=== PATIENT | male | born 1960 | race Caucasian/White ===

== ENCOUNTER → 2024-01-20 | Outpatient (CLI) | payer BC, SELFPAY ==
--- NOTE | 2024-01-20 11:03 | NEURO ---
NCS and/or EMG Patient Report Ordering Doctor: Mat Engle DATE OF SERVICE: 01/20/24 Gregg presents with numbness and tingling in both hand. He reports it is primarily in the first 4 digits of each hand. Electrodiagnostic findings: Right median motor nerve demonstrates prolonged distal latency with normal amplitude and reduced conduction velocity. Left median motor nerve demonstrates prolonged latency with normal amplitude and reduced conduction velocity. Ulnar motor response is within normal limits bilaterally. Prolonged right median F?wave. Absent median sensory responses at the wrist and palm bilaterally. Needle EMG testing was performed in the upper limbs. All muscles tested showed no evidence of denervation with normal motor unit action potentials. Electrodiagnostic impression: This is an abnormal study of the upper limbs. 1. Electrodiagnostic findings suggestive of bilateral median mononeuropathy. This is consistent with a severe right carpal tunnel syndrome and a moderate left carpal tunnel syndrome. 2. There is no electrodiagnostic evidence for ulnar neuropathy. 3. There is no electrodiagnostic evidence for cervical radiculopathy. Multi Select Codes Neurology Neurology Interp Codes: 53817-65 Musc test done w/n test comp (interp) (2) and 91733-91 Nrv cndj test 13/> studies (interp)
== END | disposition home or self-care (01) ==
PROVIDERS: PCP Family Medicine; Referring Provider Student in an Organized Health Care Education/Training Program; Visit Provider Student in an Organized Health Care Education/Training Program
DX: G56.03 Carpal tunnel syndrome, bilateral upper limbs (principal); M77.12 Lateral epicondylitis, left elbow
CPT/HCPCS: 95886; 95913